=== PATIENT | female | born 1960 | race Caucasian/White ===

== ENCOUNTER 2020-08-08 12:50 | Outpatient (CLI) | payer OTHER, SELFPAY ==
--- NOTE | 2020-08-08 13:09 | MR_ITS ---
WS: [id number] MRI HEAD WITH CONTRAST WITH ATTENTION TO THE INTERNAL AUDITORY CANALS TECHNIQUE: Sagittal T1, T2 axial, T2 axial flair, axial susceptibility weighted imaging, axial diffus ion weighted images, and coronal T2 images were obtained. Pre and post T1 axial and post T1 coronal i mages. ADC and FSPGR images. Post gadolinium images with attention to the internal auditory canals. A xial fiesta imaging. CLINICAL INFORMATION: JOYCE SENSORINEURAL HEARING LOSS COMPARISON: None. FINDINGS: No evidence of restricted diffusion to suggest acute ischemia. Ventricular system and basal cisterns are patent. Minimal small vessel changes. Mild parenchymal volume loss. Normal posterior fossa. Jeny l vascular flow voids at the skull base. No extra-axial fluid collections. No evidence of mass or mas s effect. Paranasal sinuses and mastoid air cells well aerated. No hemosiderin on susceptibly weighted images. Proximal 7th and 8th cranial nerves are normal in appe arance. Normal trigeminal nerve root entry zones. No evidence of enhancing IAC or CP angle mass. No a bnormal intracranial enhancement. Normal dural venous sinuses. Normal cavernous sinuses and Meckel's cave. MR/MR iac's wo/w con* [id number] IMPRESSION: 1. No evidence of restricted diffusion to suggest acute ischemia. 2. Minimal small vessel changes with mild parenchymal volume loss. 3. Proximal 7th and 8th cranial nerves are normal in appearance. No evidence o f enhancing IAC or CP angle mass. 4. Paranasal sinuses are well aerated. Mastoid air cells well aerated. 5. No hemosiderin on susceptibly weighted images. 6. No other significant findings.
[2020-08-08] MEDS: gadobenate dimeglumine 20 mL vial IV (15:01)
== END 2020-08-08 12:51 | disposition home or self-care (01) ==
PROVIDERS: PCP Nurse Practitioner Family; Visit Provider Otolaryngology
DX: H90.3 Sensorineural hearing loss, bilateral (principal)
CPT/HCPCS: 70553; A9577

== ENCOUNTER → 2021-03-05 10:39 | Outpatient (BNVA) | payer OTHER, SELFPAY | PROVIDERS: PCP Nurse Practitioner Family; Visit Provider Nurse Practitioner Family | DX: Z20.822 Contact with and (suspected) exposure to COVID-19 (principal) | CPT/HCPCS: 87635 ==

== ENCOUNTER 2021-09-03 14:47 | Outpatient (CLI) | payer OTHER, SELFPAY ==
--- NOTE | 2021-09-03 15:03 | MM_ITS ---
WS: [id number] BILATERAL 3D TOMOSYNTHESIS DIGITAL SCREENING MAMMOGRAPHY WITH CAD CLINICAL INFORMATION: SCREENING HISTORY: Screening mammogram. No current complaints. COMPARISON: July 19, 2019 TECHNIQUE: Bilateral CC and MLO views. FINDINGS: The breasts are composed of heterogeneous fibroglandular density tissue, which can limit the detectio n of small underlying mass lesions. 7 mm ovoid nodular density posterior depth RIGHT breast lower out er quadrant appears more prominent compared to the prior studies. Recommend RIGHT diagnostic mammogra phy and ultrasound for further evaluation. LEFT breast is unchanged. MM/[place] [id number] IMPRESSION: BI-RADS: 0-Incomplete: Need additional imaging evaluation FOLLOW UP: Need Additional Imaging Recommend RIGHT breast diagnostic mammography and ultrasound for further evalua tion.
== END 2021-09-03 14:48 | disposition home or self-care (01) ==
PROVIDERS: PCP Nurse Practitioner Family; Visit Provider Electrodiagnostic Medicine
DX: Z12.31 Encounter for screening mammogram for malignant neoplasm of breast (principal)
CPT/HCPCS: 77063; 77067

== ENCOUNTER → 2021-10-15 08:10 | Outpatient (BNVA) | payer SELFPAY | PROVIDERS: PCP Nurse Practitioner Family; Referring Provider Electrodiagnostic Medicine; Visit Provider Dermatology | DX: Z01.89 Encounter for other specified special examinations (principal) ==

== ENCOUNTER 2021-10-24 09:16 | Outpatient (CLI) | payer OTHER, SELFPAY ==
--- NOTE | 2021-10-24 09:45 | MM_ITS ---
WS: [id number] RIGHT 3D TOMOSYNTHESIS DIGITAL MAMMOGRAPHY WITH CAD CLINICAL INFORMATION: ABNORMAL MAMMOGRAM COMPARISON: October 04, 2021 TECHNIQUE: 3 views of the right breast were obtained. FINDINGS: The right breast is composed of heterogeneous fibroglandular density tissue, which can limit the dete ction of small underlying mass lesions. Previously described 7 mm ovoid density posterior depth RIGHT breast lower outer quadrant is unchanged. Ultrasound is pending. ULTRASOUND BREAST RIGHT TECHNIQUE: Ultrasound right breast focused area of concern. CLINICAL INFORMATION: ABNORMAL MAMMOGRAM COMPARISON: Outside ultrasound June 06, 2016 FINDINGS: Ultrasound RIGHT breast at the 8:00 position demonstrates 2 benign appearing cysts with one or 2 sept ations. Largest measures 6.8 x 3.4 x 5.8 mm. This corresponds to the mammographic abnormality. Incidentally noted at the 11:00 position is a complex cystic lesion with through transmission measuri ng 6.0 x 6.3 x 8.1 mm. Numerous internal septations. This was noted on the prior outside ultrasound F ebruary 2016 at the 11:00 position and is unchanged in appearance MM/[place] [id number] IMPRESSION: BI-RADS: 2-Benign FOLLOW UP: 1 Year Follow-up Recommend return to annual screening mammography.
== END 2021-10-24 09:17 | disposition home or self-care (01) ==
LOC: RAD 09:20
PROVIDERS: PCP Nurse Practitioner Family; Visit Provider Electrodiagnostic Medicine
DX: N60.01 Solitary cyst of right breast (principal)
CPT/HCPCS: 76642; 77061

== ENCOUNTER → 2022-10-14 08:20 | Outpatient (BNVA) | payer SELFPAY | PROVIDERS: PCP Nurse Practitioner Family; Visit Provider Dermatology | DX: Z01.89 Encounter for other specified special examinations (principal) ==

== ENCOUNTER 2022-11-24 09:14 | Outpatient (CLI) | payer OTHER, SELFPAY ==
--- NOTE | 2022-11-24 10:12 | MM_ITS ---
WS: [id number] SCREENING DIGITAL TOMOSYNTHESIS MAMMOGRAM WITH CAD HISTORY: SCREENING COMPARISON: 10/24/2021, 09/03/2021 and 08/06/2020 Bilateral CC and MLO with tomosynthesis views submitted. Synthetic mammography reviewed. Computer aid ed detection analyzed. Breast composition: There are scattered areas of fibroglandular density. No suspicious masses, microc alcifications or architectural distortion. 6 mm mass noted in the posterior lateral RIGHT breast is s table on multiple prior examinations. MM/[place] [id number] IMPRESSION: BI-RADS: 2-Benign FOLLOW UP: 1 Year Follow-up
== END 2022-11-24 09:15 | disposition home or self-care (01) ==
LOC: RAD 09:17 → MOBLMAM 09:20 → RAD 10:07
PROVIDERS: PCP Electrodiagnostic Medicine; Visit Provider Electrodiagnostic Medicine
DX: Z12.31 Encounter for screening mammogram for malignant neoplasm of breast (principal)
CPT/HCPCS: 77063; 77067

== ENCOUNTER 2023-11-24 06:42 | Outpatient (CLI) | payer OTHER, SELFPAY ==
--- NOTE | 2023-11-24 07:11 | MR_ITS ---
WS: [id number] MRA HEAD TECHNIQUE: Axial 3-D TOF images obtained with axial images and axial, sagittal, and coronal 2-D refor matted images. CLINICAL INFORMATION: FAMILY HX OF ANEURYSM OF ARTERY COMPARISON: None. FINDINGS: Distal vertebral areas are patent. Basilar artery is patent. Persistent LEFT PROGRAM DIRECTOR/MUSIC DIRECTOR. Normal vascul arity to the PROGRAM DIRECTOR/MUSIC DIRECTOR territories bilaterally. Both ICAs are patent at the skull base. Normal vascularity to the GAIL and MCA territories bilaterally . No evidence of flow-limiting stenosis or aneurysm. No other suspicious findings. MR/MR angio head wo con [id number] IMPRESSION: 1. No evidence of intracranial flow-limiting stenosis or aneurysm. 2. Persistent LEFT PROGRAM DIRECTOR/MUSIC DIRECTOR. 3. No other suspicious findings.
== END 2023-11-24 06:43 | disposition home or self-care (01) ==
PROVIDERS: PCP Electrodiagnostic Medicine; Visit Provider Electrodiagnostic Medicine
DX: Z82.49 Family history of ischemic heart disease and other diseases of the circulatory system (principal)
CPT/HCPCS: 70544

== ENCOUNTER 2023-12-02 08:14 | Outpatient (CLI) | payer OTHER, SELFPAY ==
--- NOTE | 2023-12-02 08:20 | MM_ITS ---
WS: [id number] Bilateral screening 3D tomosynthesis digital mammogram, 12/02/2023 Clinical Data: SCREEN Comparison: 11/24/2022, 10/24/2021, 09/03/2021, 08/06/2020, 11/11/2019, 07/19/2019, 07/07/2018, 07/20/2017, 2016, 05/21/2016, 04/18/2015, 03/23/2014, 02/04/2013, 03/21/2012, 02/09/2012. Findings: The breast parenchymal pattern shows heterogeneous density. No spiculated masses or clustered calcifi cations are seen. There are no secondary signs of carcinoma. Mole markers are on both breasts. MM/[place] [id number] Impression: 1. Negative bilateral mammogram unchanged. 2. Recommend annual screening mammograms. BIRADS: 1-Negative FOLLOW UP: 1 Year Follow-up The CAD photo checker and assembler was used.
== END 2023-12-02 08:15 | disposition home or self-care (01) ==
LOC: RAD 08:16
PROVIDERS: PCP Electrodiagnostic Medicine; Visit Provider Electrodiagnostic Medicine
DX: Z12.31 Encounter for screening mammogram for malignant neoplasm of breast (principal)
CPT/HCPCS: 77063; 77067

== ENCOUNTER 2024-04-12 08:30 | Outpatient (CLI) | payer SELFPAY ==
[2024-04-12 09:09] LABS: HF Add Manual Diff No
[2024-04-12 09:29] LABS: Basophils # 0.1 10^3/uL (0.0-0.1); Basophils % 0.9 %; Eosinophils # 0.1 10^3/uL (0.0-0.8); Lymphocytes % 30.7 %; Mean Corpuscular HGB Conc 32.4 g/dL (30-55); Mean Corpuscular Hemoglobin 29.4 pg (27-33); Mean Corpuscular Volume 90.9 fl (85-98); Mean Platelet Volume 10.3 fL (7.4-10.4); Monocytes # 0.6 10^3/uL (0.2-0.9); Monocytes % 9.3 %; Neutrophils # 3.63 10^3/uL (1.8-7.7); Neutrophils % 56.6 %; Nucleated Red Blood Cells % 0 %; Platelet Count 326 10^3/cmm (157-399); Red Blood Count 4.62 10^6/uL (3.85-5.65); Red Cell Distribution Width 13.3 % (12.1-15.1); White Blood Count 6.42 10^3/uL (3.29-11.43)
[2024-04-12 09:50] LABS: Alanine Aminotransferase 17 U/L (0-33); Albumin Level 4.2 g/dL (3.5-5.2); Alkaline Phosphatase 89 U/L (35-105); Anion Gap 14.2 (5-19); Aspartate Amino Transferase 19 U/L (0-32); Blood Urea Nitrogen 13 mg/dL (8-23); Calcium 9.3 mg/dL (8.5-10.5); Carbon Dioxide 26 mmol/L (22-29); Chloride 105 mmol/L (98-107); Chol HDL Ratio 4.55 mg/dL (0.0-4.40); Cholesterol 223 mg/dL (0-200); Globulin 3.4 g/dL (1.3-4.6); Glucose 110 mg/dL (65-115); HDL Cholesterol 49 mg/dL (60-100); LDL Cholesterol Calculated 144 mg/dL (50-129); LDL HDL Ratio 2.94 RATIO (0.00-3.22); Osmolality Calculated 293 mOsm/kg (285-295); Potassium 4.2 mmol/L (3.5-5.1); Sodium 141 mmol/L (136-145); Total Bilirubin 0.5 mg/dL (0.15-1.2); Total Protein 7.6 g/dL (6.6-8.7); Triglycerides 149 mg/dL (0-150)
[2024-04-12 10:03] LABS: Estmated Average Glucose 128; Hemoglobin A1C 6.1 % (4.0-6.0)
== END 2024-04-12 08:31 | disposition home or self-care (01) ==
PROVIDERS: PCP Electrodiagnostic Medicine; Visit Provider Dermatology
DX: Z13.9 Encounter for screening, unspecified (principal)
CPT/HCPCS: 36415

== ENCOUNTER 2024-06-20 16:06 | Emergency (ER) | payer OTHER, SELFPAY ==
[2024-06-20] VITALS (10 sets, daily range): BP systolic 173–201; BP diastolic 86–106; PULSE 67–98; RESP 17–27; TEMP 36.9; O2SAT 95–99; BMI 33.9
--- NOTE | 2024-06-20 16:12 | CTR_ITS ---
PROCEDURE INFORMATION: Exam: CT Head Without Contrast Exam date and time: 06/20/2024 4:05 PM Age: 64 years old Clinical indication: Stroke-like symptoms; Dizziness/giddiness; Additional info: Acute symptoms of stroke TECHNIQUE: Imaging protocol: Computed tomography of the head without contrast. Radiation optimization: All CT scans at this facility use at least one of these dose optimization techniques: automated exposure control; mA and/or kV adjustment per patient size (includes targeted exams where dose is matched to clinical indication); or iterative reconstruction. Other technique: STROKE PROTOCOL was implemented. COMPARISON: MR angio head wo con [id number] 11/24/2023 7:28 AM RADIATION DOSE METRICS: Total DLP (mGy-cm): 1088.95 FINDINGS: Brain: Right basal forebrain benign perivascular cyst, stable. No acute infarction. No mass. No hemorrhage. No edema. Ventricles: No hydrocephalus or evidence of increased intracranial pressure. Paranasal sinuses: Visualized sinuses are unremarkable. No fluid levels. Mastoid air cells: Visualized mastoid air cells are well aerated. Bones: Unremarkable. No acute fracture. Soft tissues: Unremarkable. CT/CT head thrombolytic [id number] IMPRESSION: No acute intracranial abnormality identified. ASSESSMENT: ASPECTS ([place] Stroke Program Early CT Score) is 10.
--- NOTE | 2024-06-20 16:25 | ECG_ITS ---
[facility] Date: 2024-06-20 Pat Name: Zoey Sánchez Department: Room: Gender: Female [employer]: : 1960 Requested By: Edward Negron Order Number: [id number] Erin MD: Timmy Dominguez M.D. Measurements Intervals Eads Rate: 74 P: 51 OR: 157 QRS: 12 QRSD: 81 T: 40 QT: 391 QTc: 435 Interpretive Statements SINUS RHYTHM LOW QRS VOLTAGE IN PRECORDIAL LEADS [QRS DEFLECTION < 1.0 mV IN CHEST LEADS] No previous ECG available for comparison Electronically Signed On 06-20-2024 20:27:12 RESIDENCE SUPERVISOR by Timmy Dominguez M.D. [email or web address]
--- NOTE | 2024-06-20 16:27 | W.ED.NEUROSD ---
Documented by User: Edward Beal DO 06/21/24 06:22 HPI - Neuro Symptoms/Deficit General: Chief Complaint: Neuro Symptoms/Deficit Stated Complaint: Stroke Alert Time Seen by Provider: 06/20/24 16:14 History of Present Illness: 64-year-old female was at the imaging center at the hospital and suddenly became lightheaded and dizzy symptoms are worsened with movement of her head or sitting up and reproducible in exam room. A rapid response was called that was called a stroke alert admit her and CT exam narrow was unremarkable for lateralizing symptoms formal NIH score when she reached was brought to the emergency room department showed an NIH of 0. Patient has reproducible dizziness with movement of her head with sitting up. No other recent symptoms no chest pain no shortness of breath Associated symptoms: Deny chest pain Related Data Home Medications ?Medication ?Instructions ?Recorded ?Confirmed multivitamin (Multiple Vitamins 1 tab PO DAILY 10/11/20 06/20/24 tablet) acyclovir 400 mg tablet 400 mg PO BID 06/20/24 06/20/24 cetirizine 10 mg tablet 10 mg PO DAILY PRN Allergic 06/20/24 06/20/24 Symptoms metoprolol succinate 100 mg 100 mg PO QPM 06/20/24 06/20/24 tablet,extended release 24 hr pantoprazole 40 mg tablet,delayed 40 mg PO QAM 06/20/24 06/20/24 release Previous Rx's ?Medication ?Instructions ?Recorded meclizine 25 mg tablet 25 mg PO QID PRN dizziness #30 tabs 06/20/24 Allergies Allergy/AdvReac Type Severity Reaction Status Date / Time No Known Allergies Allergy Verified 11/27/23 08:24 Review of Systems Const: Denies: fever(s) or chills Card: Denies: chest pain Resp: Denies: dyspnea GI: Denies: abdominal pain : Denies: dysuria, urinary frequency or urinary urgency Musc: Denies: neck pain or back pain Skin/Breast: Denies: rash PFSH ED PFSH: Medical History GERD (gastroesophageal reflux disease) Surgical History No pertinent past surgical history H/O: hysterectomy Social History Smoking and tobacco/nicotine status: never used tobacco/nicotine NIH stroke score NIHSS: Level Of Consciousness - 1a: 0 Level Of Consciousness Questions - 1b: Both Correct Level Of Consciousness Commands - 1c: Both Correct Facial Palsy - 4: Normal Motor Arm Right - 5: No Drift Motor Arm Left - 5: No Drift Motor Leg Right - 6: No Drift Motor Leg Left - 6: No Drift Limb Ataxia - 7: Absent Sensory - 8: Normal Best Language - 9: No Aphasia Dysarthia - 10: Normal Extinction And Inattention - 11: 0 Physical Exam Const: GENERAL APPEARANCE: cooperative ORIENTATION/CONSCIOUSNESS: Yes awake, Yes oriented to person, Yes oriented to place and Yes oriented to time HENMT: COMMON NORMALS: normocephalic, atraumatic and hearing grossly normal bilaterally HEAD & SCALP: normocephalic and atraumatic Resp: COMMON NORMALS: normal respiratory effort, No retractions, No use of accessory muscles and clear to auscultation bilaterally AUSCULTATION: clear to auscultation bilaterally Cardio: COMMON NORMALS: regular rate, regular rhythm and No murmurs present (Cardio) RATE: regular rate RHYTHM: regular rhythm GI: COMMON NORMALS: Soft to palpation and No hepatosplenomegaly present AUSCULTATION: Yes normoactive bowel sounds PALPATION: Yes Soft to palpation, No Tenderness to palpation present (GI), No Guarding due to palpation present (GI) and Yes No hepatosplenomegaly present Extremity: COMMON NORMALS: normal to inspection, capillary refill normal, no clubbing, cyanosis or edema, no calf tenderness and no pedal edema Neuro: SENSORIUM/ORIENTATION: Yes oriented to person, Yes oriented to place and Yes oriented to time OTHER: No focal neurologic deficits Skin: COMMON NORMALS: no rashes or lesions noted GENERAL SKIN EXAM: no rashes or lesions noted Course Vital Signs: Vital signs: Vital Signs Temperature 98.4 F 06/20/24 16:17 Pulse Rate 98 06/20/24 20:07 Respiratory Rate 19 H 06/20/24 18:25 Blood Pressure 199/98 06/20/24 20:07 Pulse Oximetry 98 06/20/24 20:07 Oxygen Delivery Me thod Room Air 06/20/24 16:26 MDM - Neuro Symptoms/Deficit Medical Decision Making Patient initially seen when she was arriving from the OB in the CT suite. Initial bedside evaluation does not really need indication of an acute stroke. She has dizziness that is relieved by remaining still. Once we seen her back in the emergency department her NIH score was completely 0. Her dizziness is reproducible by movement in her head and change in body position. Workup not yet complete, care signed out to Dr. Contreras at change of shift. See final notes for diagnosis and disposition. Care transitioned over myself at shift change, reviewed lab work, urinalysis, head CT all essentially benign. Discussed these results with the patient. Patient says she is ready to go home. Patient will be discharged home. Patient's blood pressure has improved after given 10 mg of hydralazine, Medical Records I reviewed the patient's medical records. Lab Data I reviewed the patient's lab results. 06/20/24 17:21 06/20/24 17:[address] 06/20/24 16:12 IMPRESSION: No acute intracranial abnormality identified. ASSESSMENT: ASPECTS ([place] Stroke Program Early CT Score) is 10. ADDENDUM: 06/20/24 6215 THIS REPORT CONTAINS FINDINGS THAT MAY BE CRITICAL TO PATIENT CARE. The findings were verbally communicated by me to DR. EDWARD BEAL via telephone conference at 4:23 PM BOARD SETTER on 06/20/2024. The findings were acknowledged and understood. Laboratory Results WBC 7.62 10^3/uL (3.29-11.43) 06/20/24 17:21 RBC 4.58 10^6/uL (3.85-5.65) 06/20/24 17:21 Hgb 13.80 g/dL (11.27-16.99) 06/20/24 17:21 Hct 42.0 % (36-47) 06/20/24 17:21 MCV 91.7 fl (85-98) 06/20/24: MCH 30.1 pg (27-33) 06/20/24 17: MCHC 32.9 g/dL (30-55) 06/20/24 17:21 RDW 13.5 % (12.1-15.1) 06/20/24 17: Plt Count 288 10^3/cmm (157-399) 06/20/24 17: MPV 9.9 fL (7.4-10.4) 06/20/24 17:21 Neut % (Auto) 56.7 % 06/20/24 17:21 Lymph % (Auto) 31.4 % 06/20/24 17:21 [place] % (Auto) 8.8 % 06/20/24 17:21 Eos % (Auto) 1.7 % 06/20/24 17:21 Baso % (Auto) 1.0 % 06/20/24 17:21 Neut # (Auto) 4.32 10^3/uL (1.8-7.7) 06/20/24: Lymph # (Auto) 2.4 10^3/uL (0.8-4.8) 06/20/24 17:21 [place] # (Auto) 0.7 10^3/uL (0.2-0.9) 06/20/24 17: Eos # (Auto) 0.1 10^3/uL (0.0-0.8) 06/20/24: Baso # (Auto) 0.1 10^3/uL (0.0-0.1) 06/20/24: Nucleated RBC % (auto) 0 % 06/20/24: Nucleated RBCs # 0.0 /100WBC 06/20/24 17: PT 12.70 SECONDS (12.1-14.9) 06/20/24 17:21 INR 0.89 (0.8-1.2) 06/20/24: APTT 30.2 SECONDS (23.9-36.7) 06/20/24 17: Sodium 142 mmol/L (136-145) 06/20/24 17:21 Potassium 3.6 mmol/L (3.5-5.1) 06/20/24: Chloride 107 mmol/L (98-107) 06/20/24: Carbon Dioxide 24 mmol/L (22-29) 06/20/24 17: Anion Gap 14.6 (5-19) 06/20/24 17:21 BUN 11 mg/dL (8-23) 06/20/24 17:21 Creatinine 0.6 mg/dL (0.5-0.9) 06/20/24 17: GFR Calculation 101.0 mL/min (90-130) 06/20/24 17:21 Glucose 116 mg/dL (65-115) H 06/20/24 17:21 POC Glucose 104 mg/dL (70-110) 06/20/24 16:25 Calculated Osmolality 294 mOsm/kg (285-295) 06/20/24 17:21 Calcium 9.0 mg/dL (8.5-10.5) 06/20/24 17:21 Total Bilirubin 0.3 mg/dL (0.15-1.2) 06/20/24 17:21 AST 17 U/L (0-32) 06/20/24 17:21 ALT 16 U/L (0-33) 06/20/24 17:21 Alkaline Phosphatase 97 U/L (35-105) 06/20/24 17:21 Total Protein 7.2 g/dL (6.6-8.7) 06/20/24 17:21 Albumin 4.2 g/dL (3.5-5.2) 06/20/24 17:21 Globulin 3.0 g/dL (1.3-4.6) 06/20/24 17:21 Urine Color Yellow (Yellow) 06/20/24 18:40 Urine Appearance Clear (CLEAR) 06/20/24 18:40 Urine pH 7.0 (5-7) 06/20/24 18:40 Ur Specific [place] 1.006 (1.005-1.030) 06/20/24 18:40 Urine Protein Negative (Negative) 06/20/24 18:40 Urine Glucose (UA) Negative (Normal) 06/20/24 18:40 Urine Ketones Negative (Negative) 06/20/24 18:40 Urine Blood Negative (Negative) 06/20/24 18:40 Urine Nitrate Negative (Negative) 06/20/24 18:40 Urine Bilirubin Negative (Negative) 06/20/24 18:40 Urine Urobilinogen 0.2 mg/dL (Negative) 06/20/24 18:40 Ur Leukocyte Esterase 1+ (Negative) A 06/20/24 18:40 Urine RBC 0-2 /hpf (0-2) 06/20/24 18:40 Urine WBC 6-10 /hpf (0-5) 06/20/24 18:40 Ur Squamous Epith Cells 0-5 /hpf (0-5) 06/20/24 18:40 Amorphous Sediment Not Reportable 06/20/24 18:40 Urine Bacteria Trace /hpf (NONE) 06/20/24 18:40 Hyaline Casts 0-4 /lpf H 06/20/24 18:40 Urine Opiates Screen Negative ng/mL (Negative) 06/20/24 18:40 Ur Barbiturates Screen Negative ng/mL (Negative) 06/20/24 18:40 Ur Phencyclidine Scrn Negative ng/mL (Negative) 06/20/24 18:40 Ur Amphetamines Screen Negative ng/mL (Negative) 06/20/24 18:40 U Benzodiazepines Scrn Negative ng/mL (Negative) 06/20/24 18:40 Urine Cocaine Screen Negative ng/mL (Negative) 06/20/24 18:40 U Marijuana (THC) Screen Negative ng/mL (Negative) 06/20/24 18:40 Discharge Plan Discharge Patient Disposition: Home Clinical Impression: Vertigo, Hypertension Condition: Stable Prescriptions: New meclizine 25 mg tablet 25 mg PO QID PRN (Reason: dizziness) Qty: 30 0RF No Action multivitamin [Multiple Vitamins] Tablet 1 tab PO DAILY metoprolol succinate 100 mg tablet extended release 24 hr 100 mg PO QPM acyclovir 400 mg tablet 400 mg PO BID pantoprazole 40 mg tablet,delayed release (DR/EC) 40 mg PO QAM cetirizine 10 mg tablet 10 mg PO DAILY PRN (Reason: Allergic Symptoms) Discharge Orders: Discharge ED (Routine); Ordered 06/20/24 Ordered By: Nick Contreras Referrals: Lukas Serrano DO [Primary Care Provider] - 1 week Patient Instructions: Vertigo (DC), Hypertension (ED) Activity Restrictions/Additional Instructions: Your evaluation ER did not show any acute cause of your vertigo, your lab work as well as your head CT were all unremarkable. It is thought you may have benign paroxysmal positional vertigo. Please follow-up with your family practice physician within the next 7 to 10 days for further evaluation and treatment as needed. If your symptoms worsen please feel free to return to the ER. Thank you for choosing [facility] for your healthcare needs today. Please realize that you were seen in the emergency department and that we are providing you with an emergency medical screening exam and this may not be a complete and all exclusive of all testing and/or medical workup we may need to determine your element or severity of your illness. It is very important that you follow-up as instructed with your primary care provider or specialist for the additional evaluation and to discuss your medical treatment plan. You may return to the emergency department should you have concerns or if your condition changes or worsens in any way. Print Language: Malaysian Coding Level of Care Code ED Ear Nose Throat Physician for Chg Fwd Documented by User: Nick Contreras DO 06/20/24 21:22 HPI - Neuro Symptoms/Deficit General: Chief Complaint: Neuro Symptoms/Deficit Stated Complaint: Stroke Alert Time Seen by Provider: 06/20/24 16:14 Related Data Home Medications ?Medication ?Instructions ?Recorded ?Confirmed multivitamin (Multiple Vitamins 1 tab PO DAILY 10/11/20 06/20/24 tablet) acyclovir 400 mg tablet 400 mg PO BID 06/20/24 06/20/24 cetirizine 10 mg tablet 10 mg PO DAILY PRN Allergic 06/20/24 06/20/24 Symptoms metoprolol succinate 100 mg 100 mg PO QPM 06/20/24 06/20/24 tablet,extended release 24 hr pantoprazole 40 mg tablet,delayed 40 mg PO QAM 06/20/24 06/20/24 release Previous Rx's ?Medication ?Instructions ?Recorded meclizine 25 mg tablet 25 mg PO QID PRN dizziness #30 tabs 06/20/24 Allergies Allergy/AdvReac Type Severity Reaction Status Date / Time No Known Allergies Allergy Verified 11/27/23 08:24 [facility] ED PFSH: Medical History GERD (gastroesophageal reflux disease) Surgical History No pertinent past surgical history H/O: hysterectomy Social History Smoking and tobacco/nicotine status: never used tobacco/nicotine Course Vital Signs: Vital signs: Vital Signs Temperature 98.4 F 06/20/24 16:17 Pulse Rate 98 06/20/24 20:07 Respiratory Rate 19 H 06/20/24 18:25 Blood Pressure 199/98 06/20/24 20:07 Pulse Oximetry 98 06/20/24 20:07 Oxygen Delivery Me thod Room Air 06/20/24 16:26 MDM - Neuro Symptoms/Deficit Medical Decision Making Care transitioned over myself at shift change, reviewed lab work, urinalysis, head CT all essentially benign. Discussed these results with the patient. Patient says she is ready to go home. Patient will be discharged home. Patient's blood pressure has improved after given 10 mg of hydralazine, Lab Data 06/20/24 17:21 06/20/24 17:[address] 06/20/24 16:12 IMPRESSION: No acute intracranial abnormality identified. ASSESSMENT: ASPECTS ([place] Stroke Program Early CT Score) is 10. ADDENDUM: 06/20/24 7049 THIS REPORT CONTAINS FINDINGS THAT MAY BE CRITICAL TO PATIENT CARE. The findings were verbally communicated by me to DR. EDWARD BEAL via telephone conference at 4:23 PM BOARD SETTER on 06/20/2024. The findings were acknowledged and understood. Laboratory Results WBC 7.62 10^3/uL (3.29-11.43) 06/20/24 17:21 RBC 4.58 10^6/uL (3.85-5.65) 06/20/24 17:21 Hgb 13.80 g/dL (11.27-16.99) 06/20/24 17: Hct 42.0 % (36-47) 06/20/24 17:21 MCV 91.7 fl (85-98) 06/20/24 17: MCH 30.1 pg (27-33) 06/20/24 17: MCHC 32.9 g/dL (30-55) 06/20/24 17: RDW 13.5 % (12.1-15.1) 06/20/24 17: Plt Count 288 10^3/cmm (157-399) 06/20/24 17: MPV 9.9 fL (7.4-10.4) 06/20/24 17:21 Neut % (Auto) 56.7 % 06/20/24 17:21 Lymph % (Auto) 31.4 % 06/20/24 17:21 [place] % (Auto) 8.8 % 06/20/24 17:21 Eos % (Auto) 1.7 % 06/20/24 17:21 Baso % (Auto) 1.0 % 06/20/24 17:21 Neut # (Auto) 4.32 10^3/uL (1.8-7.7) 06/20/24 17:21 Lymph # (Auto) 2.4 10^3/uL (0.8-4.8) 06/20/24 17:21 [place] # (Auto) 0.7 10^3/uL (0.2-0.9) 06/20/24 17:21 Eos # (Auto) 0.1 10^3/uL (0.0-0.8) 06/20/24 17:21 Baso # (Auto) 0.1 10^3/uL (0.0-0.1) 06/20/24 17: Nucleated RBC % (auto) 0 % 06/20/24 17: Nucleated RBCs # 0.0 /100WBC 06/20/24 17:21 PT 12.70 SECONDS (12.1-14.9) 06/20/24 17:21 INR 0.89 (0.8-1.2) 06/20/24 17:21 APTT 30.2 SECONDS (23.9-36.7) 06/20/24 17:21 Sodium 142 mmol/L (136-145) 06/20/24 17:21 Potassium 3.6 mmol/L (3.5-5.1) 06/20/24 17:21 Chloride 107 mmol/L (98-107) 06/20/24 17:21 Carbon Dioxide 24 mmol/L (22-29) 06/20/24 17:21 Anion Gap 14.6 (5-19) 06/20/24 17:21 BUN 11 mg/dL (8-23) 06/20/24 17:21 Creatinine 0.6 mg/dL (0.5-0.9) 06/20/24 17:21 GFR Calculation 101.0 mL/min (90-130) 06/20/24 17:21 Glucose 116 mg/dL (65-115) H 06/20/24 17:21 POC Glucose 104 mg/dL (70-110) 06/20/24 16:25 Calculated Osmolality 294 mOsm/kg (285-295) 06/20/24 17:21 Calcium 9.0 mg/dL (8.5-10.5) 06/20/24 17:21 Total Bilirubin 0.3 mg/dL (0.15-1.2) 06/20/24 17: AST 17 U/L (0-32) 06/20/24 17:21 ALT 16 U/L (0-33) 06/20/24 17:21 Alkaline Phosphatase 97 U/L (35-105) 06/20/24 17:21 Total Protein 7.2 g/dL (6.6-8.7) 06/20/24 17:21 Albumin 4.2 g/dL (3.5-5.2) 06/20/24 17: Globulin 3.0 g/dL (1.3-4.6) 06/20/24 17:21 Urine Color Yellow (Yellow) 06/20/24 18:40 Urine Appearance Clear (CLEAR) 06/20/24 18:40 Urine pH 7.0 (5-7) 06/20/24 18:40 Ur Specific [place] 1.006 (1.005-1.030) 06/20/24 18:40 Urine Protein Negative (Negative) 06/20/24 18:40 Urine Glucose (UA) Negative (Normal) 06/20/24 18:40 Urine Ketones Negative (Negative) 06/20/24 18:40 Urine Blood Negative (Negative) 06/20/24 18:40 Urine Nitrate Negative (Negative) 06/20/24 18:40 Urine Bilirubin Negative (Negative) 06/20/24 18:40 Urine Urobilinogen 0.2 mg/dL (Negative) 06/20/24 18:40 Ur Leukocyte Esterase 1+ (Negative) A 06/20/24 18:40 Urine RBC 0-2 /hpf (0-2) 06/20/24 18:40 Urine WBC 6-10 /hpf (0-5) 06/20/24 18:40 Ur Squamous Epith Cells 0-5 /hpf (0-5) 06/20/24 18:40 Amorphous Sediment Not Reportable 06/20/24 18:40 Urine Bacteria Trace /hpf (NONE) 06/20/24 18:40 Hyaline Casts 0-4 /lpf H 06/20/24 18:40 Urine Opiates Screen Negative ng/mL (Negative) 06/20/24 18:40 Ur Barbiturates Screen Negative ng/mL (Negative) 06/20/24 18:40 Ur Phencyclidine Scrn Negative ng/mL (Negative) 06/20/24 18:40 Ur Amphetamines Screen Negative ng/mL (Negative) 06/20/24 18:40 U Benzodiazepines Scrn Negative ng/mL (Negative) 06/20/24 18:40 Urine Cocaine Screen Negative ng/mL (Negative) 06/20/24 18:40 U Marijuana (THC) Screen Negative ng/mL (Negative) 06/20/24 18:40 All radiology interpretation(s) finalized by discharge Discharge Plan Discharge Patient Disposition: Home Clinical Impression: Vertigo, Hypertension Condition: Stable Prescriptions: New meclizine 25 mg tablet 25 mg PO QID PRN (Reason: dizziness) Qty: 30 0RF No Action multivitamin [Multiple Vitamins] Tablet 1 tab PO DAILY metoprolol succinate 100 mg tablet extended release 24 hr 100 mg PO QPM acyclovir 400 mg tablet 400 mg PO BID pantoprazole 40 mg tablet,delayed release (DR/EC) 40 mg PO QAM cetirizine 10 mg tablet 10 mg PO DAILY PRN (Reason: Allergic Symptoms) Discharge Orders: Discharge ED (Routine); Ordered 06/20/24 Ordered By: Nick Contreras Referrals: Lukas Serrano DO [Primary Care Provider] - 1 week Patient Instructions: Vertigo (DC), Hypertension (ED) Activity Restrictions/Additional Instructions: Your evaluation ER did not show any acute cause of your vertigo, your lab work as well as your head CT were all unremarkable. It is thought you may have benign paroxysmal positional vertigo. Please follow-up with your family practice physician within the next 7 to 10 days for further evaluation and treatment as needed. If your symptoms worsen please feel free to return to the ER. Thank you for choosing [facility] for your healthcare needs today. Please realize that you were seen in the emergency department and that we are providing you with an emergency medical screening exam and this may not be a complete and all exclusive of all testing and/or medical workup we may need to determine your element or severity of your illness. It is very important that you follow-up as instructed with your primary care provider or specialist for the additional evaluation and to discuss your medical treatment plan. You may return to the emergency department should you have concerns or if your condition changes or worsens in any way. Print Language: Malaysian Coding Level of Care Code ED Ear Nose Throat Physician for Angelo Piedra
[2024-06-20 16:29] LABS: Glucose Point of Care 104 mg/dL (70-110)
[2024-06-20 17:37] LABS: Basophils # 0.1 10^3/uL (0.0-0.1); Eosinophils # 0.1 10^3/uL (0.0-0.8); Eosinophils % 1.7 %; Lymphocytes # 2.4 10^3/uL (0.8-4.8); Lymphocytes % 31.4 %; Mean Corpuscular HGB Conc 32.9 g/dL (30-55); Mean Corpuscular Hemoglobin 30.1 pg (27-33); Mean Corpuscular Volume 91.7 fl (85-98); Mean Platelet Volume 9.9 fL (7.4-10.4); Monocytes # 0.7 10^3/uL (0.2-0.9); Monocytes % 8.8 %; Neutrophils # 4.32 10^3/uL (1.8-7.7); Neutrophils % 56.7 %; Nucleated Red Blood Cells % 0 %; Platelet Count 288 10^3/cmm (157-399); Red Blood Count 4.58 10^6/uL (3.85-5.65); Red Cell Distribution Width 13.5 % (12.1-15.1); White Blood Count 7.62 10^3/uL (3.29-11.43)
[2024-06-20 17:54] LABS: INR 0.89 (0.8-1.2)
[2024-06-20 17:55] LABS: Partial Thromboplastin Time 30.2 SECONDS (23.9-36.7)
[2024-06-20] MEDS: hyDRALAzine 20 mg/mL INJ 1 mL 10 MG IVP (17:59)
[2024-06-20 18:03] LABS: Alanine Aminotransferase 16 U/L (0-33); Albumin Level 4.2 g/dL (3.5-5.2); Alkaline Phosphatase 97 U/L (35-105); Anion Gap 14.6 (5-19); Aspartate Amino Transferase 17 U/L (0-32); Blood Urea Nitrogen 11 mg/dL (8-23); Carbon Dioxide 24 mmol/L (22-29); Chloride 107 mmol/L (98-107); Creatinine Clr Calc Pharmacy 107.8913; Glucose 116 mg/dL (65-115); Osmolality Calculated 294 mOsm/kg (285-295); Potassium 3.6 mmol/L (3.5-5.1); Sodium 142 mmol/L (136-145); Total Bilirubin 0.3 mg/dL (0.15-1.2); Total Protein 7.2 g/dL (6.6-8.7)
[2024-06-20 18:46] LABS: Bilirubin Urine Negative (Negative); Blood Urine Negative (Negative); Glucose Urine UA Negative (Normal); Ketones Urine Negative (Negative); Leukocyte Esterase Urine 1+ (Negative); Nitrate Urine Negative (Negative); Protein Urine Negative (Negative); Specific Gravity, Urine 1.006 (1.005-1.030); Urine Appearance Clear (CLEAR); Urine Color Yellow (Yellow); Urobilinogen Urine 0.2 mg/dL (Negative)
[2024-06-20 18:51] LABS: Add Urine Microscopic? YES; Bacteria Urine Trace /hpf; Hyaline Casts Urine 0-4 /lpf; RBC Urine 0-2 /hpf (0-2); Squamous Epithelial Cell Urine 0-5 /hpf (0-5)
[2024-06-20 18:53] LABS: Amphetamines Screen Urine Negative (Negative); Barbiturates Screen Urine Negative (Negative); Benzodiazepines Screen Urine Negative (Negative); Cocaine Screen Urine Negative (Negative); Opiate Screen Urine Negative (Negative); PCP Screen Urine Negative (Negative); THC Screen Urine Negative (Negative)
[2024-06-20 19:00] LABS: Add Urine Culture? No
[2024-06-20] MEDS: meclizine 25 mg tablet PO (19:38)
== END 2024-06-20 19:36 | disposition home or self-care (01) ==
PROVIDERS: Emergency Provider Family Medicine; PCP Electrodiagnostic Medicine
DX: R42 Dizziness and giddiness (principal); I10 Essential (primary) hypertension
CPT/HCPCS: 36415; 36416; 70450; 80053; 80306; 81001; 82962; 85025; 85610; 85730; 93005; 96374; 99285; J0360; J8597

== ENCOUNTER 2024-12-06 09:12 | Outpatient (CLI) | payer OTHER, SELFPAY ==
--- NOTE | 2024-12-06 09:17 | MM_ITS ---
WS: [id number] BILATERAL 3D TOMOSYNTHESIS DIGITAL SCREENING MAMMOGRAPHY WITH CAD CLINICAL INFORMATION: SCREENING HISTORY: Screening mammogram. No current complaints. COMPARISON: 2023 TECHNIQUE: Bilateral CC and MLO views. FINDINGS: The breasts are composed of heterogeneous fibroglandular density tissue, which can limit the detection of small underlying mass lesions. No suspicious mass, asymmetry, calcifications, or architectural distortion. No evidence of malignancy. MM/MM scr tomosynthesis [id number] IMPRESSION: DENSITY: The breasts are heterogeneously dense, which may obscure small masses. BI-RADS: 1 - Negative FOLLOW UP: 1 Year Follow-up Recommend return to annual screening mammography.
== END 2024-12-06 09:13 | disposition home or self-care (01) ==
LOC: RAD 09:13
PROVIDERS: PCP Electrodiagnostic Medicine; Visit Provider Electrodiagnostic Medicine
DX: Z12.31 Encounter for screening mammogram for malignant neoplasm of breast (principal); R92.333 Mammographic heterogeneous density, bilateral breasts; R92.323 Mammographic fibroglandular density, bilateral breasts
CPT/HCPCS: 77063; 77067

== ENCOUNTER 2025-04-13 07:42 | Outpatient (CLI) | payer SELFPAY ==
[2025-04-13 08:24] LABS: HF Add Manual Diff No
[2025-04-13 08:25] LABS: Hematocrit 42.9 % (36-47); Hemoglobin 14.10 g/dL (11.27-16.99); Mean Corpuscular HGB Conc 32.9 g/dL (30-55); Mean Corpuscular Hemoglobin 30.9 pg (27-33); Mean Corpuscular Volume 93.9 fl (85-98); Nucleated Red Blood Cells % 0 %; Platelet Count 293 10^3/cmm (157-399); Red Blood Count 4.57 10^6/uL (3.85-5.65); White Blood Count 6.37 10^3/uL (3.29-11.43)
[2025-04-13 08:46] LABS: Estmated Average Glucose 126; Hemoglobin A1C 6.0 % (4.0-6.0)
[2025-04-13 09:45] LABS: Alanine Aminotransferase 31 U/L (0-33); Albumin Level 4.1 g/dL (3.5-5.2); Alkaline Phosphatase 87 U/L (35-105); Anion Gap 16.3 (5-19); Aspartate Amino Transferase 25 U/L (0-32); Blood Urea Nitrogen 17 mg/dL (8-23); Calcium 9.1 mg/dL (8.5-10.5); Carbon Dioxide 25 mmol/L (22-29); Chloride 104 mmol/L (98-107); Cholesterol 217 mg/dL (0-200); Globulin 3.4 g/dL (1.3-4.6); Glucose 116 mg/dL (65-115); HDL Cholesterol 53 mg/dL (60-100); Osmolality Calculated 295 mOsm/kg (285-295); Potassium 4.3 mmol/L (3.5-5.1); Sodium 141 mmol/L (136-145); Thyroid Stimulating Hormone 2.02 uIU/mL (0.27-4.20); Total Protein 7.5 g/dL (6.6-8.7); Triglycerides 125 mg/dL (0-150)
== END 2025-04-13 07:43 | disposition home or self-care (01) ==
LOC: LAB 07:44
PROVIDERS: PCP Electrodiagnostic Medicine; Visit Provider Dermatology
DX: Z01.89 Encounter for other specified special examinations (principal)
CPT/HCPCS: 36415